=== PATIENT | female | born 1990 | race African-American/Black ===

== ENCOUNTER 2017-05-10 07:13 | Day surgery (SDC) | payer BC, OTHER ==
[2017-05-10] MEDS ORDERED: FENTANYL CITRATE INJ/PF 100 MCG/2 ML AMPUL ONE ×2 (08:01)
[2017-05-10] MEDS ORDERED: MIDAZOLAM 2 MG/2 ML INJ ONE (08:01)
[2017-05-10] MEDS ORDERED: ACETAMINOPHEN 100 ML IV ONE (08:02)
[2017-05-10] MEDS ORDERED: DEXAMETHASONE SOD PHOS INJ 10 MG/1 ML VIAL ONE (08:02)
[2017-05-10] MEDS ORDERED: ONDANSETRON HCL INJ/PF 4 MG/2 ML SDV ONE ×2 (08:02→09:29)
[2017-05-10] MEDS ORDERED: MORPHINE SULFATE 10 MG/ML INJ ONE (08:02)
[2017-05-10] MEDS ORDERED: PROPOFOL INJ 200 MG/20 ML VIAL IV ONE (08:02)
[2017-05-10] MEDS ORDERED: OXYMETAZOLINE HCL 0.05% NASAL SPRAY 15 ML BOTTLE ONE (08:03)
[2017-05-10] MEDS ORDERED: SUCCINYLCHOLINE CHLORIDE INJ 200 MG/10 ML VIAL ONE (08:03)
--- NOTE | 2017-05-10 09:15 | SURGICARE OPERATIVE REPORT E ---
[facility], [place] Operative Report NAME: JORGE MCCORD AGE: 26Y DATE OF SURGERY: 05/10/2017 ROOM: PREOPERATIVE DIAGNOSIS: Chronic tonsillitis. POSTOPERATIVE DIAGNOSIS: Chronic tonsillitis. OPERATION: Tonsillectomy. SURGEON: ROBERTA ELIAS M.D., [facility] ANESTHESIA: INDICATIONS: A 26-year-old black female with a long history of chronic tonsillitis, chronic tonsillith debris, severe tonsil stones. She was taken to the operating room for tonsillectomy. Risks and benefits discussed and accepted preoperatively. OPERATIVE PROCEDURE: Under general anesthesia, patient was placed in the slight reverse Trendelenburg position. Time out procedure performed. A mouth gag was placed. The oral cavity, tonsil area visualized. A coblation tonsillectomy was performed. The right tonsil was seized at the superior pole and a coblation tonsillectomy performed. Tonsil was removed and submitted to pathology. Similar procedure was performed for the left tonsil. Final hemostasis obtained with suction electrocautery. Total blood loss for the procedure was approximately 25 mL. The patient tolerated the procedure well and was taken to the recovery room area in satisfactory condition. DICTATING PHYSICIAN: ROBERTA ELIAS M.D. [id number] PHY#: [id number] ID: [id number] JOB#: [id number] ACCT: [id number] cc:ROBERTA ELIAS M.D. >
== END 2017-05-10 10:18 | disposition home or self-care (01) ==
LOC: SC 07:13
PROVIDERS: ATTEND Otolaryngology
PROC: 0CTPXZZ Resection of Tonsils, External Approach (ICD-10-PCS; principal; 2017-05-10 08:15)
DX: J35.01 Chronic tonsillitis (principal); J35.8 Other chronic diseases of tonsils and adenoids
CPT/HCPCS: 88304 ×2; 42826; J2250; J3010; J2270; J0330; J2405; J2704; J1100; J0131; 170; J3490